=== PATIENT | male | born 1955 | race Caucasian/White ===

== ENCOUNTER 2016-07-10 09:20 | Inpatient (IN) | payer OTHER ==
[~2016-07-10] VITALS: Ht 170.2 cm; Wt 71.3 kg
[2016-07-10] MEDS: ASPIRIN 81 MG TAB PO SCH (09:00)
[~2016-07-10 09:20] MED LIST: [UNRECOGNIZED DRUG - OTHER]
[2016-07-10] MEDS ORDERED: NITROGLYCERIN 2% 1 GM OINT PKT TD STA (09:38)
[2016-07-10] MEDS ORDERED: ASPIRIN 81 MG TAB PO STA (09:38)
[2016-07-10] MEDS ORDERED: NITROGLYCERIN (SL) 0.4 MG TAB SL PRN ×2 (10:00→12:00)
--- NOTE | 2016-07-10 10:34 | RADRPT ---
PROCEDURE: XR Chest. CLINICAL INDICATION: Chest pain TECHNIQUE: Chest AP portable. COMPARISON: 11/15/2012 FINDINGS: The mediastinal structures are unremarkable. The heart is normal in size and configuration. The pu lmonary vascularity is normal. The lung villa are unremarkable. No consolidation is identified. The pleural spaces are unremarkable. The axial skeleton is unremarkable. 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 IMPRESSION: No active intrathoracic disease. RPTAT: HGDB .Didier Mitchell MD, MD Date Time Electronically viewed and signed by .Didier Mitchell MD, on 07/10/2016 10:33 .B/
[2016-07-10] MEDS ORDERED: HYDR50TA3 PO (10:37)
[2016-07-10] MEDS ORDERED: LOSA100T7 PO (10:37)
[2016-07-10] MEDS ORDERED: MTF1000T PO (10:37)
[2016-07-10 10:43] LABS: ADD SCAN DIFF NO
[2016-07-10] MEDS ORDERED: ASPI81TA3 PO (10:46)
[2016-07-10] MEDS ORDERED: ATOR20TA38 PO (10:46)
[2016-07-10 10:47] LABS: BASOPHIL # 0.1 10^3/ul (0.0-0.1); BASOPHILS % 1.1 % (0.0-2.0); EOSINOPHILS # 0.7 10^3/ul (0.0-0.5); EOSINOPHILS % 7.3 % (0.0-7.0); HEMATOCRIT 43.8 % (42.0-52.0); HEMOGLOBIN 14.1 g/dl (14.0-18.0); LYMPHOCYTES % 21.5 % (15.0-51.0); MEAN CORPUSCULAR HEMOGLOBIN 25.1 pg (29.0-33.0); MEAN CORPUSCULAR HGB CONC 32.2 g/dl (32.0-37.0); MEAN CORPUSCULAR VOLUME 78.1 fl (82.0-101.0); MEAN PLATELET VOLUME 10.2 fl (7.4-10.4); MONOCYTES % 10.1 % (0.0-11.0); NEUTROPHIL # 5.7 10^3/ul (1.6-7.5); NEUTROPHILS % 59.5 % (39.0-77.0); PLATELET COUNT 282 10^3/UL (140-415); RED BLOOD COUNT 5.61 10^6/ul (4.70-6.10); RED CELL DISTRIBUTION WIDTH 14.4 % (11.5-14.5); WHITE BLOOD COUNT 9.5 10^3/ul (4.8-10.8)
[2016-07-10 10:55] LABS: CHLORIDE 101 mmol/L (97-110); SODIUM 141 mmol/L (135-144)
[2016-07-10 10:56] LABS: POTASSIUM 3.5 mmol/L (3.5-5.1)
[2016-07-10 10:58] LABS: CREATININE 1.07 mg/dl (0.61-1.24)
[2016-07-10 10:59] LABS: ANION GAP 18 (8-16); BLOOD UREA NITROGEN 13 mg/dl (7-20); CALCIUM 9.6 mg/dl (8.4-10.2); CARBON DIOXIDE 26 mmol/L (21-31); GLUCOSE 135 mg/dl (70-220); INR 1.13; PROTIME 14.5 Sec (12.2-14.2); PT RATIO 1.1
[2016-07-10 11:11] LABS: TROPONIN-I < 0.010 ng/ml (0.00-0.12)
--- NOTE | 2016-07-10 11:28 | ERA ---
ER Documentation Chief Complaint Date/Time DATE: 07/10/16 TIME: 11:27 Chief Complaint chest pain since yesterday. mild sob and radiating to bilateral shoulders. ROS All systems reviewed and are negative except as per history of present illness. Medications Home Meds Reported Medications Atorvastatin Calcium* (Atorvastatin Calcium*) 20 Mg Tablet, 20 MG PO QHS, #30 TAB 07/10/16 Aspirin* (Aspirin* Chew) 81 Mg Tab.chew, 81 MG PO DAILY, TAB.CHEW 07/10/16 Metformin* (Glucophage*) 1,000 Mg Tablet, 1000 MG PO BID, #60 TAB 07/10/16 Hydrochlorothiazide* (Hydrochlorothiazide*) 50 Mg Tab, 50 MG PO DAILY, #30 TAB 07/10/16 Losartan Potassium* (Losartan Potassium*) 100 Mg Tablet, 100 MG PO DAILY, TAB 07/10/16 Discontinued Reported Medications [Cardis] No Conflict Check 11/15/12 Allergies Allergies: Coded Allergies: aspirin (Verified Allergy, Unknown, 07/10/16) Uncoded Allergies: NONE (Allergy, Unknown, 07/10/16) SULFA (Allergy, Unknown, 07/10/16) PMhx/Soc Hx Miscellaneous Medical Probl: Yes (dm) Hx Alcohol Use: No Hx Substance Use: No Hx Tobacco Use: No Smoking Status: Never smoker Physical Exam Vitals Vital Signs Date Time Temp Pulse Resp B/P Pulse Ox O2 Delivery O2 Flow Rate FiO2 07/10/16 10:30 Nasal Cannula 2 07/10/16 09:26 98.1 112 20 178/89 98 Physical Exam Const: [] Head: Atraumatic Eyes: Normal Conjunctiva ENT: Normal External Ears, Nose and Mouth. Neck: Full range of motion..~ No meningismus. Resp: Clear to auscultation bilaterally Cardio: Regular rate and rhythm, no murmurs Abd: Soft, non tender, non distended. Normal bowel sounds Skin: No petechiae or rashes Back: No midline or flank tenderness Ext: No cyanosis, or edema Neur: Awake and alert Psych: Normal Mood and Affect Result Diagram: 07/10/16 1030 07/10/16 1030 Results 24 hrs Laboratory Tests Test 07/10/16 10:30 Activated Partial Thromboplast Time 35.0Sec Anion Gap 18 Basophils # 0.110^3/ul Basophils % 1.1% Blood Urea Nitrogen 13mg/dl Calcium Level 9.6mg/dl Carbon Dioxide Level 26mmol/L Chloride Level 101mmol/L Creatinine 1.07mg/dl Eosinophils # 0.710^3/ul Eosinophils % 7.3% Glucose Level 135mg/dl Hematocrit 43.8% Hemoglobin 14.1g/dl INR International Normalized Ratio 1.13 Lymphocytes # 2.010^3/ul Lymphocytes % 21.5% Mean Corpuscular Hemoglobin 25.1pg Mean Corpuscular Hemoglobin Concent 32.2g/dl Mean Corpuscular Volume 78.1fl Mean Platelet Volume 10.2fl Monocytes # 1.010^3/ul Monocytes % 10.1% Neutrophils # 5.710^3/ul Neutrophils % 59.5% Nucleated Red Blood Cells # 0.010^3/ul Nucleated Red Blood Cells % 0.0/100WBC Platelet Count 53254^3/UL Potassium Level 3.5mmol/L Prothrombin Time 14.5Sec Prothrombin Time Ratio 1.1 Red Blood Count 5.6110^6/ul Red Cell Distribution Width 14.4% Sodium Level 141mmol/L Troponin I < 0.010ng/ml White Blood Count 9.510^3/ul Current Medications Medications (Trade) Dose Ordered Sig/Ramirez Route PRN Reason Start Time Stop Time Status Last Admin Dose Admin Aspirin (Aspirin) 162 mg ONCE STAT PO 07/10/16 09:38 07/10/16 09:40 DC 07/10/16 10:27 Nitroglycerin (Nitroglycerin 2% Oint) 1 inch ONCE STAT TD 07/10/16 09:38 07/10/16 09:40 DC 07/10/16 10:26 Nitroglycerin (Nitroglycerin (Sl Tab) 0.4 Mg) 1 tab Q5M UP TO 3 DOSES PRN SL CHEST PAIN 07/10/16 10:00 07/10/16 10:27 Ondansetron HCl (Zofran Inj) 4 mg ER BRIDGE PRN IV NAUSEA AND/OR VOMITING 07/10/16 11:30 07/11/16 11:29 Acetaminophen (Tylenol Tab) 650 mg ER BRIDGE PRN PO MILD PAIN/FEVER 07/10/16 11:30 07/11/16 11:29 Procedures/MDM EKG #1 read by me: Rate/Rhythm: Sinus tachycardia at a rate of 112 Intervals: Normal Impression: AR depressions diffusely and AR elevation in aVR consistent with possible pericarditis EKG #2 read by me: Rate/Rhythm: Sinus tachycardia at a rate of 102 Intervals: Normal Impression: AR depressions diffusely and AR elevation in aVR consistent with possible pericarditis Chest x-ray negative per radiology. Patient is a 60-year-old male with hypertension and diabetes and family history of coronary disease who presents with chest pain. He has chest pain and upper back pain. His EKGs show possible pericarditis and this could be the cause of his chest pain. However there is also the possibility of acute coronary syndrome and therefore he was given aspirin and nitroglycerin. I doubt pneumonia, pneumothorax, pulmonary embolism, or aortic dissection. I spoke with Dr. Esquivel from the panel team for admission to a telemetry bed. He has [facility] insurance and Dr. Esquivel is admitting for [facility]. Departure Diagnosis: Primary Impression: Pericarditis Qualified Code: I30.9 - Acute pericarditis, unspecified type Additional Impression: Chest pain Qualified Code: R07.9 - Chest pain, unspecified type Condition: ANTON Castaneda MD Jul 10, 2016 11:28
[2016-07-10] MEDS ORDERED: ACETAMINOPHEN 325 MG TAB PO PRN ×2 (11:30→12:00)
[2016-07-10] MEDS ORDERED: ONDANSETRON 4 MG INJ IV PRN (11:30)
[2016-07-10] MEDS ORDERED: DOCUSATE SODIUM 100 MG CAP PO PRN (12:00)
[2016-07-10] MEDS ORDERED: NACL 0.9% 3 ML SYG IV SCH (12:00)
[2016-07-10 13:07] LABS: CREATINE KINASE 68 IU/L (23-200)
[2016-07-10 13:19] LABS: CK-MB 1.24 ng/ml (0.0-2.4); TROPONIN-I < 0.010 ng/ml (0.00-0.12)
[2016-07-10 16:50] LABS: CREATINE KINASE 70 IU/L (23-200)
[2016-07-10 17:03] LABS: CK-MB 1.48 ng/ml (0.0-2.4); TROPONIN-I < 0.010 ng/ml (0.00-0.12)
--- NOTE | 2016-07-10 18:25 | HP ---
DATE OF ADMISSION: 07/10/2016 FINANCIAL OFFICER: Cardiology. CHIEF COMPLAINT: Chest pain. HISTORY OF PRESENT ILLNESS: This is a pleasant 60-year-old gentleman with past medical history of h ypertension, diabetes mellitus, dyslipidemia, who presents to [facility] secondary to having chest discomfort which started this morning and also had been having headache off and on for the past several weeks. The patient denies having any shortness of breath. The pain in the therese st was radiating to both shoulders 5/10, not stabbing, it was pressure-like, which upon arrival to e mergency room patient was treated with aspirin and nitroglycerin and the pain subsided. At this dai e, patient denies any other discomfort. He denies any headache, dizziness, lightheadedness. No aditi rtness of breath. No nausea, vomiting, diarrhea. No neck pain. No restricted range of motion in u pper and lower extremities. No recent travel history. No sick contact or any other discomfort. PAST MEDICAL AND SURGICAL HISTORY: As above per HPI. MEDICATIONS: 1. Aspirin. 2. Lipitor. 3. Hydrochlorothiazide. 4. Losartan. 5. Metformin. ALLERGIES: SULFA. SOCIAL HISTORY: Negative x3 for smoking, alcohol, illicit drugs. FAMILY HISTORY: Positive for hypertension, diabetes mellitus. REVIEW OF SYSTEMS: As above per HPI, otherwise 12 review of systems has been found to be negative. PHYSICAL EXAMINATION: VITAL SIGNS: Temperature 98.1, pulse 100, respirations 18, blood pressure 124/86, oxygen 96% on thanh m air. GENERAL APPEARANCE: The patient is lying in bed comfortably without any distress. He is awake, chantale rt, oriented. He is able to answer my questions properly. EYES AND ENT: Conjunctivae and lids are normal. Pupils are normal. Extraocular normal. Hearing g rossly normal. Lips and gums are normal. Oral mucosa is moist. NECK: Supple. Trachea is midline. No lymphadenopathy. RESPIRATORY: Effort is normal. Clear to auscultation bilaterally. CARDIOVASCULAR: Normal S1, S2. Regular rhythm and rate. No murmur, no bruits, no edema. Peripher al pulses, radial pulses palpable. Capillary refill is normal. CHEST: Normal expansion of thorax during inspiration. GASTROINTESTINAL: Abdomen is soft, nontender, nondistended. Bowel sounds present. No guarding, no rebound. GENITOURINARY: Deferred. MUSCULOSKELETAL: Upper and lower extremities within normal limits. Full range of motion. NEUROLOGIC: Cranial nerves II through XII are grossly intact. PSYCHIATRIC: Normal judgment and insight. Alert and oriented x3. Mood and affect is normal. LABORATORY DATA: WBC 9.5, hemoglobin 14.1, hematocrit 43.8, platelets 22. Sodium 141, potassium 3. 5, chloride 101, bicarbonate 26, BUN 13, creatinine 1.07, glucose 135. Troponin negative x3. EKG s howed sinus tachycardia, ventricular 112, AR depression diffusely, AR elevation in AVR consistent wi th possible pericarditis. ASSESSMENT AND PLAN: 1. Chest pain, likely secondary to pericarditis. The patient has been started on aspirin. We will continue statin. Cardiology has been consulted. Obtain 2D echocardiogram. Serial troponins have been found to be negative. Follow up TSH. 2. Diabetes mellitus. The patient has been placed on insulin sliding scale, low carbohydrate diet. Follow up hemoglobin A1c in a.m. 3 Dyslipidemia. Follow up lipid panel. Continue statin and accordingly. 3. Essential hypertension, well controlled on medical management. 4. Deep venous thrombosis prophylaxis, on Lovenox. 5. Gastrointestinal prophylaxis not indicated. We will continue to monitor patient closely. Further recommendations, management and treatment as p er clinical course. Total amount of time was spent for evaluation of patient and admission workup 40 minutes. Dictated By: ROBERT MCLEAN MD PN/NTS Conf#: [id number] DID#: [id number]
[2016-07-10 18:36] VITALS: TEMP 98.1
[2016-07-10 18:56] LABS: CREATINE KINASE 67 IU/L (23-200)
[2016-07-10 19:16] LABS: TROPONIN-I < 0.010 ng/ml (0.00-0.12)
[2016-07-10 20:29] VITALS: PULSE 105
[2016-07-10] MEDS: ATORVASTATIN 20 MG TAB PO SCH (22:01)
[2016-07-10] MEDS: METOPROLOL 25 MG TAB PO SCH (22:02)
[2016-07-10] MEDS: metFORMIN 500 MG TAB PO SCH (22:04)
[2016-07-10] MEDS: morphine 2 MG INJ IV PRN (22:05)
--- NOTE | 2016-07-10 22:52 | RADRPT ---
Echocardiogram Report Patient Name: ARELY OSBORNE Gender: Male Date: 1955 Study Date: 10-Jul-2016 Shop Girl: Anna Pang RDCS Location: [facility] Ref. Physician: ROBERT MCLEAN Quality: Good Procedures: Transthoracic echocardiogram with complete 2D, M-Mode, and doppler examination. Indications: Chest Pain. 2D/M Mode Doppler Measurement Value Normal Ranges Measurement Value Normal Ranges LVIDd 2D 4.3 3.5 - 5.6 cm AV Peak Elijah 1.1 m/sec LVIDs 2D 3.0 2.1 - 4.1 cm AV Peak PG 4.0 mmHg FS 2D 31.6 % LVOT Peak Elijah 0.9 m/sec LVPWd 2D 0.9 0.6 - 1.1 cm LVOT Peak PG 4.0 mmHg IVSd 2D 0.8 0.6 - 1.1 cm MV E Peak Elijah 0.5 m/sec IVS/LVPW 2D 1.0 MV A Peak Elijah 0.7 m/sec AoR Diam 2D 2.9 2.0 - 3.7 cm MV E/A 0.7 LA/Ao 2D 1 0 - 1 MV Decel Time 148 msec EDV 2D 81.2 cm3 MV E/A 0.7 ESV 2D 25.9 cm3 TR Peak Elijah 2.3 m/sec LA Dimen 2D 2.6 2.3 - 4.0 cm TR Peak PG 21.0 mmHg RVSP 24.0 mmHg Findings Left Ventricle: Normal left ventricular systolic function. Normal left ventricular cavity size. Normal left ventricular wall thickness. Ejection fraction is visually estimated at 55 %. Tissue Doppler/Mitral Doppler indices are consistent with impaired relaxation (Stage I diastolic dysfunction). Right Ventricle: Normal right ventricular size. Normal right ventricular systolic function. Left Atrium: The left atrium is normal in size. Right Atrium: The right atrium is normal in size. Mitral Valve: Normal appearance and function of the mitral valve with trace physiologic regurgitation. Aortic Valve: No significant aortic stenosis or insufficiency. Aortic cusps appear mildly calcified. Tricuspid Valve: Normal appearance and function of the tricuspid valve with trace physiologic regurgitation. Normal right ventricular systolic pressure. Pulmonic Valve: Normal pulmonic valve appearance. Pericardium: Normal pericardium with no significant pericardial effusion. Aorta: Normal aortic root. IVC: Normal size and normal respiratory collapse consistent with normal right atrial pressure. Conclusions 1.Normal left ventricular systolic function. Normal left ventricular cavity size. Normal left ventricular wall thickness. Ejection fraction is visually estimated at 55 %. Tissue Doppler/Mitral Doppler indices are consistent with impaired relaxation (Stage I diastolic dysfunction). 2.Normal appearance and function of the mitral valve with trace physiologic regurgitation. 3.Normal appearance and function of the tricuspid valve with trace physiologic regurgitation. Normal right ventricular systolic pressure. Electronically Signed By: Jose Munguia 10-Jul-2016 22:51:15 -0800 Patient Name: ARELY OSBORNE Study Date: 10-Jul-2016 [id number]
[2016-07-11] VITALS (10 sets, daily range): BP systolic 122–142; BP diastolic 74–90; PULSE 95–126; RESP 18–20; Ht 170.2 cm; Wt 71.3 kg
--- NOTE | 2016-07-11 00:50 | CONS ---
DATE OF ADMISSION: 07/10/2016 DATE OF CONSULTATION: 07/10/2016 TYPE OF CONSULTATION: Cardiology. REASON FOR CONSULTATION: Chest pain, assess for acute coronary syndrome. REQUESTING PHYSICIAN: Dr. Mclean from the hospitalist service. HISTORY OF PRESENT ILLNESS: Mr. Pritchett is very pleasant 60-year-old male with history of hypertensio n, diabetes mellitus, dyslipidemia who initially presented with complaints of substernal chest pain described as a pressure-like sensation occurring both at rest and with exertion, ongoing for approxi mately 2 days. Upon arrival in the emergency department, temperature of 98.1, blood pressure elevat ed at 178/89, pulse 112, respiratory rate 20, saturating 98%. The patient's labs with a white cell count of 9.5, hemoglobin 14.1 and platelet count of 282. Sodium 141, potassium ____, creatinine 1.0 , BUN of 13. Troponin negative. INR 1.1. The patient underwent a chest x-ray revealing no acute i ntrathoracic abnormalities. The patient's electrocardiogram was sinus tachycardia, rate of 102 with normal axis, voltage criteria for left ventricular hypertrophy and nonspecific ST and T abnormaliti es diffusely. The patient was subsequently admitted to the floor and since admit to floor denies on going chest pain. PAST MEDICAL HISTORY: As above in HPI. MEDICATIONS CURRENTLY IN HOSPITAL: 1. Hydrochlorothiazide 12.5 mg daily. 2. Cozaar 100 mg daily. 3. Lovenox 40 mg subQ daily. 4. Lipitor 20 mg at bedtime. 5. Metformin 1000 mg b.i.d. 6. Sublingual nitroglycerin. 7. Morphine p.r.n. 8. Colace p.r.n. 9. Zofran p.r.n. 10. Aspirin 81 mg daily. ALLERGIES: SULFA. SOCIAL HISTORY: No tobacco. Social ETOH. No illicit drug use. FAMILY HISTORY: Negative for sudden cardiac or early CAD. REVIEW OF SYSTEMS: CONSTITUTIONAL: No fevers, chills. PULMONARY: No current shortness of breath. CARDIOVASCULAR: Intermittent chest pain. GASTROINTESTINAL: No vomiting. GENITOURINARY: No hematuria. MUSCULOSKELETAL: Degenerative joint disease. PSYCHIATRIC: The patient denies depression. NEUROLOGIC: No documented history of CVA. PHYSICAL EXAMINATION: VITAL SIGNS: Temperature of 98.1, blood pressure 142/91, pulse 92, respiratory rate 16, saturating 98%. GENERAL: The patient is alert, awake. No acute distress. NECK: JVP approximately 8 to 9 cm water. CHEST: Fair air movement throughout. HEART: Regular rate and rhythm. Normal S1, S2. I/ systolic murmur. Nondisplaced PMI. ABDOMEN: Positive bowel sounds, soft. EXTREMITIES: No pitting edema. Pulses 1+ bilaterally at posterior tibial. LABORATORIES: As above in [facility] with most recent from today, the patient having had a second troponin return negative. IMAGING STUDIES: As above in HPI. No further imaging studies for my review at this time. ELECTROCARDIOGRAM: As above in HPI. No further electrocardiograms for my review at this time. IMPRESSION: 1. Chest pain, assess for acute coronary syndrome. 2. Abnormal electrocardiogram with diffuse nonspecific ST and T-wave abnormalities, assess for acut e coronary syndrome. 3. Hypertension, under reasonable control. 4. Dyslipidemia. RECOMMENDATIONS: 1. At this time would maintain the patient on telemetry monitoring to follow rhythm and rate contro l closely. 2. Continue the patient's aspirin at this time for prophylaxis against cardiovascular events. 3. Give patient sublingual nitroglycerin for recurrent episodes of chest pain. 4. Continue the patient's current Cozaar and hydrochlorothiazide and additionally will initiate [facility] on low-dose beta arianna in setting of tachycardia and chest pain, EKG abnormalities. 5. Complete the patient's rule-out for myocardial infarction, ensure that the patient's chest pain was not due to an acute coronary syndrome such as an acute myocardial infarction, thus send a final troponin. 6. Check a 2D echocardiogram to further assess this patient's ejection fraction, wall motion, rule out any major valve abnormalities, and if the patient does rule out for myocardial infarction, I bel ieve this patient will benefit from inpatient cardiac stress test given multiple cardiac risk factor s, and this will be scheduled to take place in the morning. Thank you for allowing me to take part in the care of this patient. I will continue to follow very closely with you with further recommendations to be made as the patient progresses through his [facility] clinical course. Dictated By: JESSY DE LA FUENTE/VANNESSA Conf#: [id number] DID#: [id number] CC: ROBERT MCLEAN MD;*End*
[2016-07-11] MEDS: PANTOPRAZOLE (EC) 40 MG TAB PO SCH (06:19)
[2016-07-11] MEDS: metFORMIN 500 MG TAB PO SCH ×2 (07:43→16:39)
[2016-07-11 09:45] LABS: ADD SCAN DIFF NO
[2016-07-11 09:52] LABS: BASOPHIL # 0.1 10^3/ul (0.0-0.1); BASOPHILS % 1.1 % (0.0-2.0); EOSINOPHILS # 0.8 10^3/ul (0.0-0.5); EOSINOPHILS % 7.5 % (0.0-7.0); HEMATOCRIT 45.9 % (42.0-52.0); HEMOGLOBIN 14.6 g/dl (14.0-18.0); LYMPHOCYTES # 2.2 10^3/ul (0.8-2.9); LYMPHOCYTES % 20.2 % (15.0-51.0); MEAN CORPUSCULAR HGB CONC 31.8 g/dl (32.0-37.0); MEAN CORPUSCULAR VOLUME 78.7 fl (82.0-101.0); MEAN PLATELET VOLUME 10.4 fl (7.4-10.4); MONOCYTE # 0.9 10^3/ul (0.3-0.9); MONOCYTES % 8.4 % (0.0-11.0); NEUTROPHIL # 6.9 10^3/ul (1.6-7.5); NEUTROPHILS % 62.5 % (39.0-77.0); PLATELET COUNT 348 10^3/UL (140-415); RED BLOOD COUNT 5.83 10^6/ul (4.70-6.10); RED CELL DISTRIBUTION WIDTH 14.3 % (11.5-14.5)
[2016-07-11 09:59] LABS: POTASSIUM 3.9 mmol/L (3.5-5.1)
[2016-07-11 10:02] LABS: CREATININE 1.07 mg/dl (0.61-1.24)
[2016-07-11 10:03] LABS: CALCIUM 9.7 mg/dl (8.4-10.2); CHOL/HDL RATIO 3.9 RATIO; MAGNESIUM 1.3 mg/dl (1.7-2.5)
[2016-07-11 10:17] LABS: FREE T3 4.25 pg/ml (2.77-5.27)
[2016-07-11 10:31] LABS: THYROID STIMULATING HORMONE 3.77 MIU/L (0.465-4.680)
--- NOTE | 2016-07-11 13:46 | PN ---
Date/Time of Note Date/Time of Note DATE: 07/11/16 TIME: 13:45 Assessment/Plan VTE Prophylaxis VTE Prophylaxis Intervention: SCD's Lines/Catheters IV Catheter Type (from [facility]): [facility] Urinary Cath still in place: No Assessment/Plan Assessment/Plan 1. Chest pain, likely secondary to pericarditis. The patient has been started on aspirin. We will continue statin. Cardiology has been consulted. Obtain 2D echocardiogram. Serial troponins have been found to be negative. Follow up TSH. 2. Diabetes mellitus. The patient has been placed on insulin sliding scale, low carbohydrate diet. Follow up hemoglobin A1c in a.m. 3 Dyslipidemia. Follow up lipid panel. Continue statin and accordingly. 3. Essential hypertension, well controlled on medical management. 4. Deep venous thrombosis prophylaxis, on Lovenox. 5. Gastrointestinal prophylaxis not indicated. Subjective 24 Hr Interval Summary Free Text/Dictation HR still 125-130s, on metoprolol Exam/Review of Systems Vital Signs Vitals Vital Signs Date Time Temp Pulse Resp B/P Pulse Ox O2 Delivery O2 Flow Rate FiO2 07/11/16 12:22 110 07/11/16 11:00 98.3 18 130/81 94 Room Air 07/10/16 10:30 2 Exam NECK: Supple. Trachea is midline. No lymphadenopathy. RESPIRATORY: Effort is normal. Clear to auscultation bilaterally. CARDIOVASCULAR: Normal S1, S2. Regular rhythm and rate. No murmur, no bruits , no edema. Peripheral pulses, radial pulses palpable. Capillary refill is normal. CHEST: Normal expansion of thorax during inspiration. GASTROINTESTINAL: Abdomen is soft, nontender, nondistended. Bowel sounds present. No guarding, no rebound. GENITOURINARY: Deferred. MUSCULOSKELETAL: Upper and lower extremities within normal limits. Full range of motion. NEUROLOGIC: Cranial nerves II through XII are grossly intact. PSYCHIATRIC: Normal judgment and insight. Alert and oriented x3. Mood and affect is normal. Results Result Diagram: 07/11/1690407/11/16904 Results 24 hrs Laboratory Tests Test 07/10/16 15:40 07/10/16 17:50 07/10/16 21:58 07/11/16 07:51 Creatine Kinase 70 67 Creatine Kinase Index 2.1 2.2 Creatinine Kinase MB (Mass) 1.48 1.50 Troponin I < 0.010 < 0.010 Bedside Glucose 205 121 Test 07/11/16 09:05 07/11/16 12:16 Anion Gap 21 H Basophils # 0.1 Basophils % 1.1 Blood Urea Nitrogen 17 Calcium Level 9.7 Carbon Dioxide Level 28 Chloride Level 96 L Cholesterol Level 137 Cholesterol/HDL Ratio 3.9 Creatinine 1.07 Eosinophils # 0.8 H Eosinophils % 7.5 H Free Thyroxine 1.29 Free Triiodothyronine (T3) pg/mL 4.25 Glucose Level 131 HDL Cholesterol 35 Hematocrit 45.9 Hemoglobin 14.6 Hemoglobin A1c 6.6 H LDL Cholesterol, Calculated 65 Lymphocytes # 2.2 Lymphocytes % 20.2 Magnesium Level 1.3 L Mean Corpuscular Hemoglobin 25.0 L Mean Corpuscular Hemoglobin Concent 31.8 L Mean Corpuscular Volume 78.7 L Mean Platelet Volume 10.4 Monocytes # 0.9 Monocytes % 8.4 Neutrophils # 6.9 Neutrophils % 62.5 Nucleated Red Blood Cells # 0.0 Nucleated Red Blood Cells % 0.0 Platelet Count 348 # Potassium Level 3.9 Red Blood Count 5.83 Red Cell Distribution Width 14.3 Sodium Level 141 Thyroid Stimulating Hormone (TSH) 3.770 Triglycerides Level 183 H White Blood Count 11.0 H Bedside Glucose 131 Medications Medications Current Medications Aspirin (Aspirin) 81 mg DAILY PO ; Start 07/10/16 at 09:00 Atorvastatin Calcium (Lipitor) 20 mg QHS PO Last administered on 07/10/16 22: 01; Admin Dose 20 MG; Start 07/10/16 at 21:00 Hydrochlorothiazide (Hydrochlorothiazide) 12.5 mg DAILY PO ; Start 07/11/16 at 09:00 Losartan Potassium (Cozaar) 100 mg DAILY PO ; Start 07/11/16 at 09:00 Nitroglycerin (Nitroglycerin (Sl Tab) 0.4 Mg) 1 tab Q5M PRN SL CHEST PAIN; Start 07/10/16 at 12:00 Acetaminophen (Tylenol Tab) 650 mg Q6H PRN PO PAIN LEVEL 1-3 OR FEVER; Start at 12:00 Morphine Sulfate (morphine) 1 mg Q4H PRN IV PAIN LEVEL 7-10 Last administered on 07/10/16 22:05; Admin Dose 1 MG; Start 07/10/16 at 12:00 Docusate Sodium (Colace) 100 mg Q12H PRN PO CONSTIPATION; Start 07/10/16 at 12: 00 Pantoprazole (Protonix Tab) 40 mg DAILY@06 PO Last administered on 07/11/16 06 :19; Admin Dose 40 MG; Start 07/11/16 at 06:00 Enoxaparin Sodium (Lovenox) 40 mg DAILY SC ; Start 07/11/16 at 09:00 Metoprolol Tartrate (Lopressor) 25 mg BID PO Last administered on 07/10/16 22: 02; Admin Dose 25 MG; Start 07/10/16 at 21:00 STEPHAN STAPLES MD Jul 11, 2016 13:46
--- NOTE | 2016-07-11 14:01 | CONS ---
Date/Time of Note Date/Time of Note DATE: 07/11/16 TIME: 13:59 Assessment/Plan Assessment/Plan Additional Assessment/Plan 1. Chest pain, assess for acute coronary syndrome- R/O [place] - stress test planned today. 2. Abnormal electrocardiogram with diffuse nonspecific ST and T-wave abnormalities, assess for acute coronary syndrome ? pericarditis - will monitor post stress test. 3. Hypertension, under reasonable control- con't med rx. 4. Dyslipidemia- Rx to goal. 5. Sinus tach - stable, will monitor as needed. Consultation Date/Type/Reason Admit Date/Time Jul 10, 2016 at 11:17 Initial Consult Date 24 HR Interval Summary Free Text/Dictation NO acute events. Stres test to follow today. ROS: No fever, no chills, no nausea, no vomiting, no diarrhea/constipation No recent weight changes No chest pain, no PND, no orthopnea No dizziness, blurred vision No thirst, no heat or cold intolerance Exam/Review of Systems Vital Signs Vitals Vital Signs Date Time Temp Pulse Resp B/P Pulse Ox O2 Delivery O2 Flow Rate FiO2 07/11/16 12:22 110 07/11/16 11:00 98.3 18 130/81 94 Room Air 07/10/16 10:30 2 Exam General: WN/WD/NAD, AOx 3 HEENT: Unicetric/atraumatic/EOMI (follow commands) NECK: JVD elevated, no thyromegaly Lymph: no lymphadenopathy HEART: regular with no S3, II/ systolic murmur at apex LUNGS: Coarse sounds ABD: soft, NT, ND, +BS : Intact Neuro: non focal SKIN: chronic changes EXT: trace edema Results Result Diagram: 07/11/1690407/11/16 09 Results 24 hrs Laboratory Tests Test 07/10/16 15:40 07/10/16 17:50 07/10/16 21:58 07/11/16 07:51 Creatine Kinase 70 67 Creatine Kinase Index 2.1 2.2 Creatinine Kinase MB (Mass) 1.48 1.50 Troponin I < 0.010 < 0.010 Bedside Glucose 205 121 Test 07/11/16 09:05 07/11/16 12:16 Anion Gap 21 H Basophils # 0.1 Basophils % 1.1 Blood Urea Nitrogen 17 Calcium Level 9.7 Carbon Dioxide Level 28 Chloride Level 96 L Cholesterol Level 137 Cholesterol/HDL Ratio 3.9 Creatinine 1.07 Eosinophils # 0.8 H Eosinophils % 7.5 H Free Thyroxine 1.29 Free Triiodothyronine (T3) pg/mL 4.25 Glucose Level 131 HDL Cholesterol 35 Hematocrit 45.9 Hemoglobin 14.6 Hemoglobin A1c 6.6 H LDL Cholesterol, Calculated 65 Lymphocytes # 2.2 Lymphocytes % 20.2 Magnesium Level 1.3 L Mean Corpuscular Hemoglobin 25.0 L Mean Corpuscular Hemoglobin Concent 31.8 L Mean Corpuscular Volume 78.7 L Mean Platelet Volume 10.4 Monocytes # 0.9 Monocytes % 8.4 Neutrophils # 6.9 Neutrophils % 62.5 Nucleated Red Blood Cells # 0.0 Nucleated Red Blood Cells % 0.0 Platelet Count 348 # Potassium Level 3.9 Red Blood Count 5.83 Red Cell Distribution Width 14.3 Sodium Level 141 Thyroid Stimulating Hormone (TSH) 3.770 Triglycerides Level 183 H White Blood Count 11.0 H Bedside Glucose 131 Medications Medications Current Medications Aspirin (Aspirin) 81 mg DAILY PO ; Start 07/10/16 at 09:00 Atorvastatin Calcium (Lipitor) 20 mg QHS PO Last administered on 07/10/16 22: 01; Admin Dose 20 MG; Start 07/10/16 at 21:00 Hydrochlorothiazide (Hydrochlorothiazide) 12.5 mg DAILY PO ; Start 07/11/16 at 09:00 Losartan Potassium (Cozaar) 100 mg DAILY PO ; Start 07/11/16 at 09:00 Nitroglycerin (Nitroglycerin (Sl Tab) 0.4 Mg) 1 tab Q5M PRN SL CHEST PAIN; Start 07/10/16 at 12:00 Acetaminophen (Tylenol Tab) 650 mg Q6H PRN PO PAIN LEVEL 1-3 OR FEVER; Start at 12:00 Morphine Sulfate (morphine) 1 mg Q4H PRN IV PAIN LEVEL 7-10 Last administered on 07/10/16 22:05; Admin Dose 1 MG; Start 07/10/16 at 12:00 Docusate Sodium (Colace) 100 mg Q12H PRN PO CONSTIPATION; Start 07/10/16 at 12: 00 Pantoprazole (Protonix Tab) 40 mg DAILY@06 PO Last administered on 07/11/16 06 :19; Admin Dose 40 MG; Start 07/11/16 at 06:00 Enoxaparin Sodium (Lovenox) 40 mg DAILY SC ; Start 07/11/16 at 09:00 Metoprolol Tartrate (Lopressor) 25 mg BID PO Last administered on 07/10/16t 22: 02; Admin Dose 25 MG; Start 07/10/16 at 21:00 BEA CHAUDHARI MD Jul 11, 2016 14:01
[2016-07-11] MEDS ORDERED: REGADENOSON 0.4 MG/5 ML SYG ONE (15:18)
--- NOTE | 2016-07-11 15:57 | ECORPT ---
DATE OF SERVICE: 07/11/2016 LEXISCAN CARDIOLITE STRESS TEST REFERRING PHYSICIAN: Arjun Esquivel MD REASON FOR EVALUATION: Chest pain. DESCRIPTION OF TEST: The patient came into the heart lab in a fasting condition. He was initially tachycardic, heart rate of 113, blood pressure /87. He tolerated the injection well. The imag ing portion of the report will be dictated separately. Dictated By: BEA CHAUDHARI MD ML/NTS Conf#: [id number] DID#: [id number]
[2016-07-11] MEDS ORDERED: GLUCOSE GEL 15 GRAM TUBE BUCCAL PRN (16:00)
[2016-07-11] MEDS ORDERED: GLUCAGON 1 MG INJ IM PRN (16:00)
[2016-07-11] MEDS ORDERED: DEXTROSE 50% 50 ML SYRINGE IV PRN ×2 (16:00)
[2016-07-11] MEDS ORDERED: GLUCOSE GEL 15 GRAM TUBE PO PRN ×2 (16:00)
--- NOTE | 2016-07-11 16:36 | RADRPT ---
PROCEDURE: Nuclear medicine myocardial stress and rest scan. CLINICAL INDICATION: Chest pain. TECHNIQUE: The patient was stressed with 0.4 mg IV Lexiscan. 9.9 mCi technetium 99m Tetrofosmin ( Myoview) was administered rest. 25.9 mCi technetium 99m Tetrofosmin (Myoview) was administered dur ing stress. Images were obtained and reconstructed in the short axis, horizontal long axis, and donna tical long axis. Gated images were obtained and ejection fraction was calculated. COMPARISON: No prior study is available for comparison. FINDINGS: The stress and rest images demonstrate normal uptake throughout. There is no fixed abnormality or r eversible abnormality. There is no evidence of transient ischemic dilatation. Wall motion is normal. There is normal wall thickening during systole. Ejection fraction at stress is 69%. IMPRESSION: 1. No evidence of stress induced myocardial ischemia. 2. Ejection fraction at stress is 69%. RPTAT: QQ .Lars Keith MD, MD Date Time Electronically viewed and signed by .Lars Keith MD, on 07/11/2016 16:36 .R/
[2016-07-11] MEDS: METOPROLOL 25 MG TAB PO SCH ×2 (16:38→21:00)
[2016-07-11] MEDS: LOSARTAN 50 MG TAB PO SCH (16:38)
[2016-07-11] MEDS: HYDROCHLOROTHIAZIDE 12.5 MG CAP PO SCH (16:39)
[2016-07-11] MEDS: ASPIRIN 81 MG TAB PO SCH (16:39)
[2016-07-11] MEDS: ENOXAPARIN 40 MG/0.4 ML SYG SC SCH (16:40)
[2016-07-11] MEDS: ATORVASTATIN 20 MG TAB PO SCH (20:47)
[2016-07-11] MEDS: morphine 2 MG INJ IV PRN (21:18)
[2016-07-12] VITALS (10 sets, daily range): BP systolic 128–138; BP diastolic 76–83; PULSE 100–115; RESP 17–18
[2016-07-12] MEDS: PANTOPRAZOLE (EC) 40 MG TAB PO SCH (06:39)
[2016-07-12] MEDS: ASPIRIN 81 MG TAB PO SCH (08:49)
[2016-07-12] MEDS: LOSARTAN 50 MG TAB PO SCH (08:49)
[2016-07-12] MEDS: HYDROCHLOROTHIAZIDE 12.5 MG CAP PO SCH (08:49)
[2016-07-12] MEDS: METOPROLOL 25 MG TAB PO SCH ×2 (08:50→20:42)
[2016-07-12] MEDS: metFORMIN 500 MG TAB PO SCH ×2 (08:50→17:56)
[2016-07-12] MEDS: ENOXAPARIN 40 MG/0.4 ML SYG SC SCH (08:51)
[2016-07-12] MEDS ORDERED: METOPROLOL 25 MG TAB PO ONE (13:00)
--- NOTE | 2016-07-12 13:09 | PN ---
Date/Time of Note Date/Time of Note DATE: 07/12/16 TIME: 13:08 Assessment/Plan VTE Prophylaxis VTE Prophylaxis Intervention: LMWH Lines/Catheters IV [facility] Urinary Cath still in place: No Assessment/Plan Assessment/Plan 1. Chest pain, likely secondary to pericarditis. The patient has been started on aspirin. We will continue statin. Cardiology has been consulted. Obtain 2D echocardiogram. Serial troponins have been found to be negative. Follow up TSH. Symptomatic tachycardia 2. Diabetes mellitus. The patient has been placed on insulin sliding scale, low carbohydrate diet. Follow up hemoglobin A1c in a.m. 3 Dyslipidemia. Follow up lipid panel. Continue statin and accordingly. 3. Essential hypertension, well controlled on medical management. 4. Deep venous thrombosis prophylaxis, on Lovenox. 5. Gastrointestinal prophylaxis not indicated. Subjective 24 Hr Interval Summary Free Text/Dictation HR still in 110s, Stress test negative Exam/Review of Systems Vital Signs Vitals Vital Signs Date Time Temp Pulse Resp B/P Pulse Ox O2 Delivery O2 Flow Rate FiO2 07/12/16 12:16 102 07/12/16 11:42 98.0 17 129/83 97 07/11/16 16:15 Room Air 07/10/16 10:30 2 Exam NECK: Supple. Trachea is midline. No lymphadenopathy. RESPIRATORY: Effort is normal. Clear to auscultation bilaterally. CARDIOVASCULAR: Normal S1, S2. Regular rhythm and rate. No murmur, no bruits , no edema. Peripheral pulses, radial pulses palpable. Capillary refill is normal. CHEST: Normal expansion of thorax during inspiration. GASTROINTESTINAL: Abdomen is soft, nontender, nondistended. Bowel sounds present. No guarding, no rebound. GENITOURINARY: Deferred. MUSCULOSKELETAL: Upper and lower extremities within normal limits. Full range of motion. NEUROLOGIC: Cranial nerves II through XII are grossly intact. PSYCHIATRIC: Normal judgment and insight. Alert and oriented x3. Mood and affect is normal. Results Result Diagram: 07/11/1690407/11/16904 Results 24 hrs Laboratory Tests Test 07/11/16 16:30 07/11/16 20:50 07/12/16 07:57 Bedside Glucose 131 138 131 Medications Medications Current Medications Aspirin (Aspirin) 81 mg DAILY PO Last administered on 07/12/16t 08:49; Admin Dose 81 MG; Start 07/10/16 at 09:00 Atorvastatin Calcium (Lipitor) 20 mg QHS PO Last administered on 07/11/16 20: 47; Admin Dose 20 MG; Start 07/10/16 at 21:00 Hydrochlorothiazide (Hydrochlorothiazide) 12.5 mg DAILY PO Last administered on 07/12/16 08:49; Admin Dose 12.5 MG; Start 07/11/16 at 09:00 Losartan Potassium (Cozaar) 100 mg DAILY PO Last administered on 07/12/16 08: 49; Admin Dose 100 MG; Start 07/11/16 at 09:00 Nitroglycerin (Nitroglycerin (Sl Tab) 0.4 Mg) 1 tab Q5M PRN SL CHEST PAIN; Start 07/10/16 at 12:00 Acetaminophen (Tylenol Tab) 650 mg Q6H PRN PO PAIN LEVEL 1-3 OR FEVER; Start at 12:00 Morphine Sulfate (morphine) 1 mg Q4H PRN IV PAIN LEVEL 7-10 Last administered on 07/11/16 21:18; Admin Dose 1 MG; Start 07/10/16 at 12:00 Docusate Sodium (Colace) 100 mg Q12H PRN PO CONSTIPATION; Start 07/10/16 at 12: 00 Pantoprazole (Protonix Tab) 40 mg DAILY@06 PO Last administered on 07/12/16 06 :39; Admin Dose 40 MG; Start 07/11/16 at 06:00 Enoxaparin Sodium (Lovenox) 40 mg DAILY SC Last administered on 07/12/16 08:51 ; Admin Dose 40 MG; Start 07/11/16 at 09:00 Metoprolol Tartrate (Lopressor) 25 mg BID PO Last administered on 07/12/16 08: 50; Admin Dose 25 MG; Start 07/10/16 at 21:00 Miscellaneous Information 1 ea NOTE XX ; Start 07/11/16 at 16:00 Glucose (Glutose) 15 gm Q15M PRN PO DECREASED GLUCOSE; Start 07/11/16 at 16:00 Glucose (Glutose) 22.5 gm Q15M PRN PO DECREASED GLUCOSE; Start 07/11/16 at 16: 00 Dextrose (D50w Syringe) 25 ml Q15M PRN IV DECREASED GLUCOSE; Start 07/11/16 at 16:00 Dextrose (D50w Syringe) 50 ml Q15M PRN IV DECREASED GLUCOSE; Start 07/11/16 at 16:00 Glucagon (Glucagen) 1 mg Q15M PRN IM DECREASED GLUCOSE; Start 07/11/16 at 16:00 Glucose (Glutose) 15 gm Q15M PRN BUCCAL DECREASED GLUCOSE; Start 07/11/16 at 16 :00 STEPHAN STAPLES MD Jul 12, 2016 13:09
--- NOTE | 2016-07-12 15:54 | CONS ---
Date/Time of Note Date/Time of Note DATE: 07/12/16 TIME: 15:52 Assessment/Plan Assessment/Plan Additional Assessment/Plan 1. Chest pain, assess for acute coronary syndrome- R/O [place] - stress test EF > 60 %, no ischemia . 2. Abnormal electrocardiogram with diffuse nonspecific ST and T-wave abnormalities, assess for acute coronary syndrome ? pericarditis - will monitor post stress test. Stable overall. 3. Hypertension, under reasonable control- con't med rx. BETTER now - BB now. 4. Dyslipidemia- Rx to goal. 5. Sinus tach - stable, will monitor as needed.- no Cp, negative stress test. Consultation Date/Type/Reason Admit Date/Time Jul 10, 2016 at 11:17 24 HR Interval Summary Free Text/Dictation NO acute change - negative stress test. Con't Rx - if d/c, will f/up in office. ROS: No fever, no chills, no nausea, no vomiting, no diarrhea/constipation No recent weight changes No chest pain, no PND, no orthopnea No dizziness, blurred vision No thirst, no heat or cold intolerance Exam/Review of Systems Vital Signs Vitals Vital Signs Date Time Temp Pulse Resp B/P Pulse Ox O2 Delivery O2 Flow Rate FiO2 07/12/16 15:46 98.0 99 17 128/81 94 07/11/16 16:15 Room Air 07/10/16 10:30 2 Exam General: WN/WD/NAD, AOx 3 HEENT: Unicetric/atraumatic/EOMI (follows commands) NECK: JVD elevated, no thyromegaly Lymph: no lymphadenopathy HEART: regular with no S3, II/ systolic murmur at apex LUNGS: Coarse sounds ABD: soft, NT, ND, +BS : Intact Neuro: non focal SKIN: chronic changes EXT: trace edema Results Result Diagram: 07/11/1690407/11/16904 Results 24 hrs Laboratory Tests Test 07/11/16 16:30 07/11/16 20:50 07/12/16 07:57 Bedside Glucose 131 138 131 Medications Medications Current Medications Aspirin (Aspirin) 81 mg DAILY PO Last administered on 07/12/16 08:49; Admin Dose 81 MG; Start 07/10/16 at 09:00 Atorvastatin Calcium (Lipitor) 20 mg QHS PO Last administered on 07/11/16 20: 47; Admin Dose 20 MG; Start 07/10/16 at 21:00 Hydrochlorothiazide (Hydrochlorothiazide) 12.5 mg DAILY PO Last administered on 07/12/16 08:49; Admin Dose 12.5 MG; Start 07/11/16 at 09:00 Losartan Potassium (Cozaar) 100 mg DAILY PO Last administered on 07/12/16 08: 49; Admin Dose 100 MG; Start 07/11/16 at 09:00 Nitroglycerin (Nitroglycerin (Sl Tab) 0.4 Mg) 1 tab Q5M PRN SL CHEST PAIN; Start 07/10/16 at 12:00 Acetaminophen (Tylenol Tab) 650 mg Q6H PRN PO PAIN LEVEL 1-3 OR FEVER; Start at 12:00 Morphine Sulfate (morphine) 1 mg Q4H PRN IV PAIN LEVEL 7-10 Last administered on 07/11/16 21:18; Admin Dose 1 MG; Start 07/10/16 at 12:00 Docusate Sodium (Colace) 100 mg Q12H PRN PO CONSTIPATION; Start 07/10/16 at 12: 00 Pantoprazole (Protonix Tab) 40 mg DAILY@06 PO Last administered on 07/12/16 06 :39; Admin Dose 40 MG; Start 07/11/16 at 06:00 Enoxaparin Sodium (Lovenox) 40 mg DAILY SC Last administered on 07/12/16 08:51 ; Admin Dose 40 MG; Start 07/11/16 at 09:00 Metoprolol Tartrate (Lopressor) 25 mg BID PO Last administered on 07/12/16 08: 50; Admin Dose 25 MG; Start 07/10/16 at 21:00 Miscellaneous Information 1 ea NOTE XX ; Start 07/11/16 at 16:00 Glucose (Glutose) 15 gm Q15M PRN PO DECREASED GLUCOSE; Start 07/11/16 at 16:00 Glucose (Glutose) 22.5 gm Q15M PRN PO DECREASED GLUCOSE; Start 07/11/16 at 16: 00 Dextrose (D50w Syringe) 25 ml Q15M PRN IV DECREASED GLUCOSE; Start 07/11/16 at 16:00 Dextrose (D50w Syringe) 50 ml Q15M PRN IV DECREASED GLUCOSE; Start 07/11/16 at 16:00 Glucagon (Glucagen) 1 mg Q15M PRN IM DECREASED GLUCOSE; Start 07/11/16 at 16:00 Glucose (Glutose) 15 gm Q15M PRN BUCCAL DECREASED GLUCOSE; Start 07/11/16 at 16 :00 BEA CHAUDHARI MD Jul 12, 2016 15:54
[2016-07-12] MEDS: ATORVASTATIN 20 MG TAB PO SCH (20:42)
[2016-07-13] VITALS (8 sets, daily range): BP systolic 122–130; BP diastolic 76–82; PULSE 87–100; RESP 17–18
[2016-07-13] MEDS: PANTOPRAZOLE (EC) 40 MG TAB PO SCH (06:29)
[2016-07-13] MEDS: metFORMIN 500 MG TAB PO SCH (08:45)
[2016-07-13] MEDS: ASPIRIN 81 MG TAB PO SCH (08:46)
[2016-07-13] MEDS: LOSARTAN 50 MG TAB PO SCH (08:46)
[2016-07-13] MEDS: HYDROCHLOROTHIAZIDE 12.5 MG CAP PO SCH (08:46)
[2016-07-13] MEDS: METOPROLOL 25 MG TAB PO SCH (08:46)
[2016-07-13] MEDS: ENOXAPARIN 40 MG/0.4 ML SYG SC SCH (08:47)
--- NOTE | 2016-07-13 12:35 | PDOCDIS ---
Discharge Instructions CONDITION Patient Condition: Good HOME CARE INSTRUCTIONS: Special Diet: Cardiac Diet ACTIVITY: Activity Restrictions: Slowly Increase Activity Rest between Activity Avoid heavy lifting Avoid Heavy Housework FOLLOW UP/APPOINTMENTS Appointments follow up with his own PMD through HMO insurance in 1-2 week after discharge STEPHAN STAPLES MD Jul 13, 2016 12:35
[2016-07-13] MEDS ORDERED: METO-448 PO (12:36)
--- NOTE | 2016-07-14 17:12 | DS ---
DATE OF ADMISSION: 07/10/2016 DATE OF DISCHARGE: 07/13/2016 FINAL DISCHARGE DIAGNOSES: 1. Atypical chest pain. Stress test negative. 2. Acute pericarditis. 3. Diabetes mellitus. 4. Tachycardia secondary to acute pancreatitis. 5. History of dyslipidemia. 6. History of diabetes mellitus on metformin. 7. History of hypertension. CONSULTATIONS DONE DURING THIS HOSPITALIZATION: Cardiology consult, Dr. Samuel Wallace. PROCEDURES PERFORMED DURING THIS HOSPITALIZATION: The patient underwent Lexiscan myocardial perfusi on stress test which was negative for any perfusion defect. Ejection fraction was normal. HOSPITAL COURSE: This is a 60-year-old male with a past medical history of hypertension, hyperlipid emia, diabetes mellitus, history of gastroesophageal reflux disease who presented with a complaint o f chest pain, shortness of breath. He gets admitted to telemetry floor for atypical chest pain. He had serial troponins and EKG negative for any acute coronary syndrome. He had a subsequent Cardiol ogy consultation done by Dr. Jose Munguia/Dr. Samuel Wallace and had a Lexiscan myocardial perfusion stress test which was negative. The patient was noted to have severe sinus tachycardia with a heart rate up to 130 to 140 during this hospitalization. He was started on metoprolol 25 mg p.o. b.i.d. while being in the hospital and he was discharged home with that prescription. He is advised to fol low up with the director and professor and primary care physician as outpatient. DISPOSITION: To home. DISCHARGE CONDITION: Stable and improved compared to admission. DISCHARGE ACTIVITIES: As tolerated, slowly resume to the normal baseline activity. DISCHARGE DIET: Cardiac, low fat, low sodium ADA 1800 kilocalorie diet. DISCHARGE MEDICATIONS: He is given new prescriptions of metoprolol 25 mg p.o. b.i.d. upon discharge . DISCHARGE FOLLOWUP AND INSTRUCTIONS: The patient is to follow up [facility] his own primary care [facility] his O insurance in 1 to 2 weeks after discharge. He understood and verbalized shane ramos Dictated By: STEPHAN STAPLES MD, KP/VANNESSA Conf#: [id number] DID#: [id number]
--- NOTE | 2016-07-15 17:44 | RADRPT ---
Vent Rate: 106 bpm RR Interval: [address] Interval: 164 msec QRS Duration: 80 msec QT Interval: 346 msec QTC Interval: 459 msec P-R-T [place]: 45 - -34 - 57 degrees Sinus tachycardia Left axis deviation Abnormal ECG Electronically Signed By: Logan Hernandez [id number]
== END 2016-07-13 15:46 | disposition home or self-care (01) | DRG 316 ==
LOC: E/R 09:20 → MS4 11:17
PROVIDERS: ADMIT Family Medicine; ATTEND Family Medicine
DX: I30.9 Acute pericarditis, unspecified (principal); I10 Essential (primary) hypertension; E11.9 Type 2 diabetes mellitus without complications; E78.5 Hyperlipidemia, unspecified; Z79.899 Other long term (current) drug therapy; Z79.84 Long term (current) use of oral hypoglycemic drugs; Z88.2 Allergy status to sulfonamides
CPT/HCPCS: 36415; 71010; 78452; 80048; 80061; 82550; 82553; 82962; 83036; 83735; 84439; 84443; 84481; 84484; 85025; 85610; 85730; 93005; 93017; 93306; A9500; A9505; J1650; J2270; J2785

== ENCOUNTER 2017-04-23 15:12 | Day surgery (SDC) | payer OTHER ==
[~2017-04-23] VITALS: Ht 170.2 cm; Wt 73.0 kg
[~2017-04-23 15:12] MED LIST changes: +ASPI81TA3 PO; +ATOR20TA38 PO; +HYDR50TA3 PO; +LOSA100T7 PO; +METO-448 PO; +MTF1000T PO; -[UNRECOGNIZED DRUG - OTHER]
[2017-04-23 16:30] VITALS: Ht 170.2 cm; Wt 73.0 kg
[2017-04-23] MEDS ORDERED: PANTOPRAZOLE DAILY (16:43)
[2017-04-23 17:10] VITALS: BP 151/88; PULSE 78; RESP 18
--- NOTE | 2017-04-23 17:48 | OPPN ---
Date/Time of Note Date/Time of Note DATE: 04/23/17 TIME: 17:47 Operative Report Preoperative Diagnosis Screening colonoscopy Positive occult blood in stool Postoperative Diagnosis Small transverse colon polyp was removed Internal and external hemorrhoids Operation/Procedure Performed Colonoscopy and biopsy Surgeon see signature line special ed assistant None Anesthesia: moderate sedation Estimated blood loss: none Transfusion Required none Specimen Colon polyp Grafts/Implants none Complications none JULIA MCCRARY MD Apr 23, 2017 17:48
[2017-04-23 18:10] VITALS: BP 146/92; PULSE 74; RESP 19
[2017-04-23] MEDS ORDERED: MIDAZOLAM 1 MG/ML 2 ML INJ ONE ×2 (18:45)
[2017-04-23] MEDS ORDERED: FENTAnyl 50 MCG/ML VIAL ONE (18:46)
--- NOTE | 2017-04-23 21:41 | GILP ---
DATE OF PROCEDURE: NAME OF PROCEDURE: Colonoscopy and biopsy. SURGEON: Julia Whipple MD PREOPERATIVE DIAGNOSES: 1. Positive occult blood in stool. 2. Screening colonoscopy. POSTOPERATIVE DIAGNOSES: 1. Colonoscopy all the way to the cecum. 2. Small transverse colon polyp was removed using biopsy forceps. 3. Internal and external hemorrhoids. INDICATION FOR THE PROCEDURE: Mr. Estiven Pritchett is a 61-year-old male patient who was noted to hav e positive occult blood in stool. He never had screening colonoscopy. The procedure and possible complications were well explained to the patient. He understood and cons ented to the procedure. DESCRIPTION OF PROCEDURE: Under the influence of fentanyl and Versed, the colonoscope was carefully introduced in the rectum and under direct vision, it was advanced all the way to the cecum. FINDINGS: The patient had a small transverse colon polyp, and it was removed using biopsy forceps. He had internal and external hemorrhoids. He tolerated the procedure very well, and there was no complication from the procedure. At the end of the procedure, he was awake with stable vital signs, and he was discharged home to the care of hi s family. IMPRESSION: Please see postoperative diagnoses. PLAN: Next screening colonoscopy in 10 years. Dictated By: JULIA FARIAS/VANNESSA Conf#: [id number] DID#: [id number]
== END 2017-04-23 19:08 | disposition home or self-care (01) ==
LOC: GIL 15:12
PROVIDERS: ATTEND Internal Medicine Gastroenterology
DX: Z12.11 Encounter for screening for malignant neoplasm of colon (principal); D12.3 Benign neoplasm of transverse colon; K64.4 Residual hemorrhoidal skin tags; K64.8 Other hemorrhoids; I10 Essential (primary) hypertension
CPT/HCPCS: 45380; 88305; J2250; J3010; Z7610

== ENCOUNTER 2018-03-11 15:06 | Observation (INO) | END 2018-03-12 18:45 | disposition home or self-care (01) ==